=== PATIENT | male | born 2005 | race Two or more races ===

== ENCOUNTER 2025-05-02 13:22 | Emergency (ER) | payer OTHER ==
[~2025-05-02] VITALS: Ht 181.6 cm; Wt 88.5 kg
[2025-05-02] MEDS ORDERED: DEXAMETHASONE SODIUM PHOSPHATE 4 MG/ML VIAL IM STA (15:52)
[2025-05-02] MEDS ORDERED: KETOROLAC TROMETHAMINE 60 MG VIAL IM STA (15:52)
[2025-05-02] MEDS ORDERED: DEXAMETHASONE SODIUM PHOSPHATE 4 MG/ML VIAL ONE (16:21)
[2025-05-02] MEDS ORDERED: KETOROLAC TROMETHAMINE 60 MG VIAL IM ONE (16:21)
[2025-05-02] MEDS ORDERED: KETO10TA2 PO (19:50)
== END 2025-05-02 20:16 | disposition home or self-care (01) ==
LOC: EMR PED 13:22 → ER 13:22 → EMR PED 15:37
DX: M54.6 Pain in thoracic spine (principal)